=== PATIENT | male | born 1975 ===

== ENCOUNTER 2016-07-10 15:20 | Observation (INO) | payer SELFPAY ==
[2016-07-10 15:54] VITALS: BP 95/71; PULSE 83; RESP 18; TEMP 97.6; O2SAT 98
[2016-07-10] MEDS ORDERED: Piperacillin/Tazobact 3.375 GM in Sodium Chloride 0.9% 100 ML IVPB STA (16:10)
--- NOTE | 2016-07-10 17:01 | ED PDOC ---
HPI: Skin/Bite Injury Time Seen by Provider: 07/10/16 16:00 Chief Complaint (Nursing): Abnormal Skin Integrity Chief Complaint (Provider): Abnormal Skin Integrity History Per: Patient History/Exam Limitations: no limitations Onset/Duration Of Symptoms: Days Current Symptoms Are (Timing): Still Present Quality Of Symptoms: Painful, Swollen Severity: Moderate Additional Complaint(s): Patient is a 41 year old male who presents to ED for evaluation of painful mass to the abdomen for 2 years but worsening in the week. Patient notes that last week the mass became red and significantly more painful, notes a fever of 102 yesterday, none today. Of note, patient was evaluated in ED on 07/06, placed on antibiotics and aspiration attempted but no purulent discharge was drained. Denies trauma, nausea, vomiting, diarrhea or constipation . Past Medical History Reviewed: Historical Data, Nursing Documentation, Vital Signs Vital Signs: Last Vital Signs Temp 97.6 F 07/10/16 15:50 Pulse 83 07/10/16 15:50 Resp 18 07/10/16 15:50 BP 95/71 L 07/10/16 15:50 Pulse Ox 98 07/10/16 19:59 - Medical History PMH: No Chronic Diseases - Surgical History Surgical History: Cholecystectomy - Family History Family History: States: Unknown Family Hx - Living Arrangements Living Arrangements: With Family - Home Medications Home Medications: Ambulatory Orders Medication Instructions Recorded Sulfamethoxazole/Trimethoprim 2 tab PO BID #28 tab 07/06/16 [Bactrim DS 800 mg-160 mg] Cephalexin [cephalexin] 500 mg PO Q6 #28 cap 07/10/16 - Allergies Allergies/Adverse Reactions: Allergies Allergy/AdvReac Type Severity Reaction Status Date / Time No Known Allergies Allergy Unverified 08/16/12 08:20 Review of Systems ROS Statement: Except As Marked, All Systems Reviewed And Found Negative Constitutional: Positive for: Fever (yesterday) Cardiovascular: Negative for: Chest Pain Respiratory: Negative for: Shortness of Breath Gastrointestinal: Negative for: Nausea, Vomiting, Abdominal Pain, Diarrhea Genitourinary Male: Negative for: Dysuria, Hematuria Skin: Positive for: Other (" Abdomen mass" ) Neurological: Negative for: Weakness, Numbness Physical Exam - Reviewed Nursing Documentation Reviewed: Yes Vital Signs Reviewed: Yes - Physical Exam Appears: Positive for: Non-toxic, No Acute Distress Skin: Positive for: Normal Color, Warm Eye Exam: Positive for: Normal appearance, PERRL Neck: Positive for: Normal, Painless ROM Cardiovascular/Chest: Positive for: Regular Rate, Rhythm. Negative for: Murmur Respiratory: Positive for: Normal Breath Sounds. Negative for: Respiratory Distress Gastrointestinal/Abdominal: Positive for: Bowel Sounds, Soft, Mass (quarter size erythematous mass indurated and non fluctuant with mild surrounding erythema, no breaking of skin integrity (unchanged from last ED visit)). Negative for: Tenderness Back: Positive for: Normal Inspection Extremity: Positive for: Normal ROM. Negative for: Pedal Edema Neurologic/Psych: Positive for: Alert, Oriented. Negative for: Motor/Sensory Deficits - Laboratory Results Result Diagrams: 07/10/16 17:00 07/10/16 17:30 - ECG O2 Sat by Pulse Oximetry: 98 (RA) Pulse Ox Interpretation: Normal Medical Decision Making Medical Decision Making: Time: 1600 Initial Impression: Mass r/o cellulitis Initial Plan: -- CT-abdomen -- CMP -- CBC -- Vanco and Zosyn IV -- Blood culture -- ED obs Scribe Attestation: Documented by Carissa Patel, acting as a scribe for Oniel Kang PA-C. Provider Scribe Attestation: All medical record entries made by the Scribe were at my direction and personally dictated by me. I have reviewed the chart and agree that the record accurately reflects my personal performance of the history, physical exam, medical decision making, and the department course for this patient. I have also personally directed, reviewed, and agree with the discharge instructions and disposition. ED OBSERVATION Discharge: Yes Date of observation admission: 07/10/16 Time of observation admission: 16:11 - Observation admission statement Patient is being placed in observation because:: Pending CT - Goals of Observation Goals of observation are:: CT results - Progress Note Progress Note: 07/10/16 17:[address] , vital remain stable and patient is comfortable in no distress at this time 07/10/16 19:21 Patient remains stable, still pending CT. Lab work reviewed, WBC slightly elevated at 12.2, otherwise all WNL 07/10/16 19:58 CT abd/pelvis w/ IV contrast: IMPRESSION: There is a subcutaneous thin wall low attenuation lesion of the ventral upper abdomen in the midline with some lipid contents with a thin enhancing wall with subtle surrounding fat stranding and measuring 3.6 x 2.0 x 2.5 cm, most likely a sebaceous cyst, possibly infected. Pt. informed of results and instructed to f/u with [facility] for further evaluation. Disposition - Clinical Impression Clinical Impression: Cellulitis, Sebaceous cyst - Patient ED Disposition Is Patient to be Admitted: No - Disposition Disposition: Routine/Home Disposition Time: 19:59 Condition: STABLE
[2016-07-10] MEDS ORDERED: Piperacillin/Tazobact 3.375 gm Inj IVPB ONE (17:21)
[2016-07-10 17:48] LABS: BASO # 0.1 K/uL (0.0-0.2); BASO % 0.5 % (0.0-2.0); EOS # 0.5 K/uL (0.0-0.7); EOS % 4.3 % (0.0-4.0); HEMATOCRIT 43.8 % (35.0-51.0); LYMPH # 2.7 K/uL (1.0-4.3); LYMPH % 22.3 % (20.0-40.0); MEAN CELL VOLUME 84.8 fl (80.0-94.0); MEAN PLATELET VOLUME 8.6 fl (7.2-11.7); MONO # 0.9 K/uL (0.0-0.8); MONO % 7.5 % (0.0-10.0); NEUT % 65.4 % (50.0-75.0); RED CELL DISTRIBUTION WIDTH 13.8 % (11.5-14.5); WHITE BLOOD COUNT 12.2 K/uL (4.8-10.8)
[2016-07-10 18:01] LABS: ALB/GLOB RATIO 1.4 (1.0-2.1); ALKALINE PHOSPHATASE 115 U/L (38-126); ALT/SGPT 56 U/L (21-72); AST/SGOT 42 U/L (17-59); BILIRUBIN,TOTAL 0.3 mg/dl (0.2-1.3); BLOOD UREA NITROGEN 17 mg/dl (9-20); CALCIUM 9.6 mg/dL (8.4-10.2); CARBON DIOXIDE 26 mmol/L (22-30); CHLORIDE 102 mmol/L (98-107); GFR AFRICAN-AMERICAN > 60; GLUCOSE,RANDOM 87 mg/dL (75-110); POTASSIUM 3.8 MMOL/L (3.6-5.0); SODIUM 139 mmol/l (132-148); TOTAL PROTEIN 8.1 G/DL (6.3-8.2)
[2016-07-10] MEDS ORDERED: Vancomycin 1 g Inj ONE (18:10)
[2016-07-10] MEDS ORDERED: Sodium Chloride 0.9% 50 ML IV ONE (19:04)
[2016-07-10] MEDS ORDERED: Iohexol 300 100 ML IJ ONE (19:04)
--- NOTE | 2016-07-11 09:04 | CT ---
PROCEDURE: CT Abdomen and Pelvis with contrast HISTORY: abdominal skin mass COMPARISON: None. TECHNIQUE: Contrast dose: 100 mL Omnipaque 300 Radiation dose: Total exam DLP = 1226.99 mGy-cm. This CT exam was performed using one or more of the following dose reduction techniques: Automated exposure control, adjustment of the mA and/or kV according to patient size, and/or use of iterative reconstruction technique. FINDINGS: LOWER THORAX: Unremarkable. LIVER: Hepatomegaly. The liver measures approximately 22 cm craniocaudal. Diffusely diminished attenuation of the liver consistent with fatty infiltration. No mass. No biliary ductal dilatation. GALLBLADDER AND BILE DUCTS: Status post cholecystectomy PANCREAS: Unremarkable. No gross lesion or ductal dilatation. SPLEEN: Unremarkable. ADRENALS: Unremarkable. No mass. KIDNEYS AND URETERS: Unremarkable. No hydronephrosis. No solid mass. VASCULATURE: Unremarkable. No aortic aneurysm. BOWEL: Unremarkable. No obstruction. No gross mural thickening. APPENDIX: Normal appendix. PERITONEUM: No ascites. Left inguinal hernia containing only mesenteric fat. No herniated bowel. In the anterior abdominal wall, there is a mass extending from the cutaneous into the subcutaneous soft tissue. This mass measures 1.9 x 4.0 x 2.8 cm. It has a thin, enhancing wall. It shows central low-attenuation averaging -14 Hounsfield units. There is mild surrounding inflammatory change. This may represent a sebaceous cyst with surrounding inflammation, possibly due to superinfection. Differential diagnosis would include small abscess. Please correlate clinically. LYMPH NODES: Unremarkable. No enlarged lymph nodesNo retroperitoneal or pelvic lymphadenopathy. Ovoid peripherally calcified structure in the lateral to right side of rectum, possibly calcified lymph node, 1.6 cm greatest dimension. No likely clinical significance. . BLADDER: Poorly distended. REPRODUCTIVE: Normal prostate. BONES: Minimal anterior wedge compression deformity of T11 and T12 vertebrae, age indeterminate. No retropulsion. Grade 1 retrolisthesis at L5-S1. No spondylolysis. OTHER FINDINGS: None. IMPRESSION: Anterior abdominal wall mass may represent sebaceous cyst, possibly with superinfection or surrounding inflammatory response. Differential diagnosis includes small abscess though epi center within the cutaneous layer is atypical. Please correlate clinically. Hepatomegaly with diffuse fatty infiltration of the liver. Status post cholecystectomy. Left inguinal hernia containing only mesenteric fat. No other significant abnormality. Preliminary interpretation of this examination was reported by [facility] at 7:55 p.m. on 07/10/2016.. There is concurrence of this report with the preliminary interpretation.
== END 2016-07-10 20:07 | disposition home or self-care (01) ==
LOC: H.ER 15:20 → H.EROBSV 16:11
PROVIDERS: ADMIT Emergency Medicine; ATTEND Emergency Medicine
DX: L72.3 Sebaceous cyst (principal); L03.315 Cellulitis of perineum
CPT/HCPCS: 74177; 80053; 85025; 87040; 96365; 99282; G0378; J2543; Q9967